=== PATIENT | male | born 1995 | race Caucasian/White ===

== ENCOUNTER 2019-02-02 15:54 | Emergency (ER) | payer OTHER ==
[~2019-02-02] VITALS: Ht 177.8 cm; Wt 81.6 kg
--- OUTSIDE RECORDS SUMMARY | 2019-02-02 16:01 | XMS REPORT | Continuity of Care Document ---
Author Organization Unknown Address Unknown Phone Unavailable Allergies There is no data. Medications There is no data. Problems There is no data. Procedures There is no data. Results There is no data. Encounters ACCT No. Visit Date/Time Discharge Status Pt. Type Provider Facility Loc./Unit Complaint [id number] 11/24/2018 15:40:00 11/24/2018 23:59:59 CLS Outpatient HANS ZARAGOZA DO [facility]
--- NOTE | 2019-02-02 16:11 | ED Upper Extremity ---
General Chief Complaint: Upper Extremity Stated Complaint: FINGER INJ AT WORK Source: patient Exam Limitations: no limitations History of Present Illness Date Seen by Provider: Feb 02, 2019 Time Seen by Provider: 15:55 Initial Comments The patient is a very pleasant 23-year-old male presents for evaluation of a left fifth digit injury. He states that he was at work when his finger was crushed in machine. He has a laceration to the tip of his left fifth finger d istal to the DIP joint. He has no pain or difficulty when flexing or extending the digit. He reports that he has had a tetanus immunization in the last 5 years. He has no other complaints and specifically denies any hand or wrist injury or pain outside of the obvious laceration. He is alert and oriented 4, calm, and appears to be in no distress. Onset: just prior to arrival Severity: moderate Pain/Injury Location: left 5th finger Method of Injury: direct blow (crush injury from heavy machinery) Allergies and Home Medications Allergies Coded Allergies: Sulfa (Sulfonamide Antibiotics) (Verified Allergy, Unknown, Rash, 02/02/19) Patient Home Medication List Home Medication List Reviewed: Yes Review of Systems Constitutional: no symptoms reported EENTM: no symptoms reported Respiratory: no symptoms reported Cardiovascular: no symptoms reported Gastrointestinal: no symptoms reported Genitourinary: no symptoms reported Musculoskeletal: no symptoms reported Skin: other (crush injury/laceration to the left fifth finger) Psychiatric/Neurological: See HPI All Other Systems Reviewed Negative Unless Noted: Yes Past Diqlwlc-Pgzquj-Xiyjzx Hx Past Med/Social Hx: Reviewed Nursing Past Med/Soc Hx Physical Exam Vital Signs Vital Signs - First Documented 02/02/19 15:58 Temp 98.5 Pulse 71 Resp 18 B/P (MAP) 142/80 (100) O2 Delivery Room Air Capillary Refill : Height, Weight, BMI Height: '" Weight: lbs. oz. 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, alert, normal mood/affect, oriented x 3 Lymphatic: no adenopathy Procedures/Interventions Wound Location: Upper Extremities (left 5th finger) Wound Length (cm): 2 Wound's Depth, Shape: irregular (with some tissue missing) Irrigated w/ Saline (ccs): 1000 Anesthesia: 1% Lidocaine Volume Anesthetic (ccs): 5 Suture: Ethlion Suture Size: 5-0 Number of Sutures: 5 Layer Closure?: 1 Sterile Dressing Applied?: Yes Progress Digital block performed with 1% lidocaine without epinephrine, laceration irregular with some tissue missing, 5 5-0 nylon sutures placed Progress/Results/Core Measures Results/Orders My Orders Orders - JOSSUE COLLAZO DO Finger(S) (02/02/19 16:01) Lidocaine 1% Inj 20 Ml (Xylocaine 1% Inj (02/02/19 16:15) Medications Given in ED Current Medications Medications Dose Ordered Sig/Oliver Route Start Time Stop Time Status Last Admin Dose Admin Lidocaine HCl 5 ml ONCE ONCE INJ 02/02/19 16:15 02/02/19 16:16 DC 02/02/19 16:27 5 ML Vital Signs/I&O 02/02/19 15:58 Temp 98.5 Pulse 71 Resp 18 B/P (MAP) 142/80 (100) O2 Delivery Room Air Diagnostic Imaging Diagonstic Imaging: Xray Comments [facility], [place] NAME: APARNA HURLEY [facility] REC#: [id number] PT STATUS: REG ER : 1995 PHYSICIAN: JOSSUE COLLAZO DO ADMIT DATE: 02/02/19/ER FS Draft Date of Exam:02/02/19 FINGER(S) CLINICAL INDICATION: Patient with crushing injury to left fifth digit. EXAM: X-ray of the left fifth finger, three views. COMPARISON: None. FINDINGS AND IMPRESSION: 1: There is a nondisplaced, oblique fracture involving the distal tuft of the fifth distal phalanx. There is soft tissue irregularity/injury seen adjacent to the fifth distal phalanx. 2: There is no radiodense foreign object. 3: The remainder of this exam is unremarkable. Dictated on workstation # [id number] Dict: 02/02/19 1612 Trans: 02/02/19 1618 [id number] Interpreted by: NORMA OZUNA MD Electronically signed by: Departure Impression Primary Impression: Laceration of finger of left hand Additional Impression: Fracture of finger of left hand Disposition: 01 HOME, SELF-CARE Condition: Stable Departure-Patient Inst. Decision time for Depature: 17:00 Referrals: NO,LOCAL PHYSICIAN (PCP/Family) Primary Care Physician Patient Instructions: Finger Fracture (DC), Laceration Repair With Stitches (DC) Add. Discharge Instructions: Follow-up with Dr. Garcia from orthopedics in the next 3-5 days. The sutures should be removed from her finger in 7-10 days from today. Keep the finger splint on to provide protection from additional injury and proper wound healing. Take Tylenol or ibuprofen at home for pain relief and he may also take the prescribed medication for pain relief as needed. Return to the emergency department immediately for new or worsening symptoms. Scripts Cephalexin (Keflex) 500 Mg Capsule 500 MG PO QID for 7 Days, #28 CAP Prov: JOSSUE COLLAZO DO 02/02/19 Hydrocodone/Acetaminophen (Johnston 5-325 Tablet) 1 Each Tablet 1 TAB PO Q4-6HR for Pain MDD 10 TABS for 7 Days, #12 TAB Prov: JOSSUE COLLAZO DO 02/02/19 Work/School Note: Work Release Form Date Seen in the Emergency Department: Feb 02, 2019 Return to Work: Feb 02, 2019 Restrictions: Need Release from Doctor JOSSUE COLLAZO DO Feb 02, 2019 16:11
[2019-02-02] MEDS ORDERED: LIDOCAINE 1% INJ 20 ML 20 ML VIAL INJ ONE (16:15)
--- NOTE | 2019-02-02 16:19 | Diagnostic Imaging Report ---
CLINICAL INDICATION: Patient with crushing injury to left fifth digit. EXAM: X-ray of the left fifth finger, three views. COMPARISON: None. FINDINGS AND IMPRESSION: 1: There is a nondisplaced, oblique fracture involving the distal tuft of the fifth distal phalanx. There is soft tissue irregularity/injury seen adjacent to the fifth distal phalanx. 2: There is no radiodense foreign object. 3: The remainder of this exam is unremarkable. Dictated by: Dictated on workstation # [id number]
[2019-02-02 17:04] VITALS: BP 142/80
[2019-02-02] MEDS ORDERED: CEPH-507 PO (17:05)
[2019-02-02] MEDS ORDERED: HYDR-4226 PO (17:05)
== END 2019-02-02 17:16 | disposition home or self-care (01) ==
LOC: ER FS 15:56
DX: S62.667A Nondisplaced fracture of distal phalanx of left little finger, initial encounter for closed fracture (principal); S61.217A Laceration without foreign body of left little finger without damage to nail, initial encounter; Z88.2 Allergy status to sulfonamides; W31.9XXA Contact with unspecified machinery, initial encounter; Y92.59 Other trade areas as the place of occurrence of the external cause; Y99.0 Civilian activity done for income or pay
CPT/HCPCS: 12041; 29130; 64450; 73140

== ENCOUNTER 2019-02-14 11:51 | Emergency (ER) | payer OTHER ==
[~2019-02-14] VITALS: Ht 177.8 cm; Wt 81.6 kg
[~2019-02-14 11:51] MED LIST: CEPH-507 PO; HYDR-4226 PO
--- NOTE | 2019-02-14 12:00 | ED Suture Removal/Wound Check ---
Suture/Wound Re-check Suture Removal/Wound Recheck : Suture Removal/Wound Recheck: Sutures removed by RN General Appearance: WD/WN, no apparent distress Neuro/Tendon: normal sensation, normal motor functions, normal tendon functions Skin Exam: normal color, warm/dry Comments Laceration to the volar aspect of the left little finger was well healed. Physical Exam Vital Signs Capillary Refill : General Appearance: no apparent distress Departure Impression Primary Impression: Visit for suture removal Disposition: HOME, SELF-CARE Condition: Unchanged Departure-Patient Inst. Decision time for Depature: 12:00 Referrals: [facility] [place] [place] [facility],LOCAL PHYSICIAN (PCP) Primary Care Physician Patient Instructions: SUTURE REMOVAL - UNCOMPLICATED, STAPLE REMOVAL - UNCOMPLICATED Add. Discharge Instructions: Return if any problems or questions. All discharge instructions reviewed with patient and/or family. Voiced understanding. DARYL RAMOS MD Feb 14, 2019 12:00
[2019-02-14 12:11] VITALS: BP 128/88
== END 2019-02-14 12:10 | disposition home or self-care (01) ==
LOC: EDUNIT# 11:51 → ER FS 11:53
DX: S61.217D Laceration without foreign body of left little finger without damage to nail, subsequent encounter (principal); X58.XXXD Exposure to other specified factors, subsequent encounter
CPT/HCPCS: 99282

== ENCOUNTER 2019-02-26 12:55 | Emergency (ER) | payer SELFPAY ==
[~2019-02-26] VITALS: Ht 177.8 cm; Wt 81.6 kg
[2019-02-26] MEDS ORDERED: TETRACAINE 0.5% OPHTH SOLN 4 ML BTL (SINGLE DOSE ONLY) OU ONE (13:15)
[2019-02-26] MEDS ORDERED: FLUORESCEIN (FLUOR-I-STRIPS) 1 MG STRP OU ONE (13:15)
[2019-02-26] MEDS ORDERED: BSS 15 ML IR ONE (13:15)
[2019-02-26] MEDS ORDERED: ERYT1OIN6 OP (14:05)
--- NOTE | 2019-02-26 14:05 | ED EENT ---
History of Present Illness General Chief Complaint: Eye Problems Stated Complaint: DOG SCRATCHED PTS RT EYE Source: patient Exam Limitations: no limitations History of Present Illness Date Seen by Provider: Feb 26, 2019 Time Seen by Provider: 13:10 Initial Comments This 23-year-old young man presents to the emergency room with burning irritation of the right eye and clouding of his vision after being positive by his dog. Timing/Duration: this morning Allergies and Home Medications Allergies Coded Allergies: Sulfa (Sulfonamide Antibiotics) (Verified Allergy, Unknown, Rash, 02/02/19) Home Medications Cephalexin 500 Mg Capsule, 500 MG PO QID Prescribed by: JOSSUE COLLAZO on 02/02/19 1705 Erythromycin Base 1 Gm Oint...g., 0 OP Q4H 1/2 inch Prescribed by: MOHSEN MURRELL on 02/26/19 1405 Hydrocodone/Acetaminophen 1 Each Tablet, 1 TAB PO Q4-6HR Prescribed by: JOSSUE COLLAZO on 02/02/19 1705 Patient Home Medication List Home Medication List Reviewed: Yes Review of Systems Review of Systems Constitutional: no symptoms reported Eyes: See HPI Ears: No Symptoms Reported Nose: no symptoms reported Mouth: no symptoms reported Throat: no symptoms reported Respiratory: no symptoms reported Cardiovascular: no symptoms reported Gastrointestinal: no symptoms reported Skin: no symptoms reported Neurological: No Symptoms Reported Hematologic/Lymphatic: No Symptoms Reported Past Elmvjxn-Ydnmej-Jojfdd Hx Past Med/Social Hx: Reviewed Nursing Past Med/Soc Hx Patient Social History Alcohol Use: Rarely Uses Recreational Drug Use: No Drug of Choice: MARIJUANA Smoking Status: Current Everyday Smoker Type Used: Cigarettes 2nd Hand Smoke Exposure: No Recent Hopitalizations: No Physical Abuse: No Sexual Abuse: No Mistreated: No Fear: No Immunizations Up To Date Tetanus Booster (TDap): Unknown PED Vaccines UTD: Yes Seasonal Allergies Seasonal Allergies: No Past Medical History Surgeries: No Respiratory: No Cardiac: No Neurological: No Genitourinary: No Gastrointestinal: No Musculoskeletal: No Endocrine: No HEENT: No Cancer: No Psychosocial: No Integumentary: No Blood Disorders: No Physical Exam Vital Signs Vital Signs - First Documented 02/26/19 13:07 Temp 97.2 Pulse 66 Resp 16 B/P (MAP) 131/78 (95) Pulse Ox 99 O2 Delivery Room Air Height, Weight, BMI Height: 5'10.00" Weight: 180lbs. oz. 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 A small abrasion was visible with the naked eye under close observation. Floor seen exam confirmed abrasion at the 4 o'clock position. Eye was irrigated with balanced saline. Progress/Results/Core Measures Results/Orders My Orders Medications Given in ED Departure Impression Primary Impression: Corneal abrasion Qualified Codes: S05.01XA - Injury of conjunctiva and corneal abrasion without foreign body, right eye, initial encounter Disposition: HOME, SELF-CARE Condition: Improved Departure-Patient Inst. Decision time for Depature: 14:03 Referrals: NO,LOCAL PHYSICIAN (PCP/Family) Primary Care Physician Patient Instructions: Corneal Abrasion (DC) Add. Discharge Instructions: Follow-up with an eye doctor on Thursday. You may take ibuprofen up to 600 mg every 6 hours as needed for pain. You may also add Tylenol (acetaminophen) up to 1000 mg every 6 hours as needed. Use erythromycin ointment as prescribed by applying a half inch ribbon to the back surface of your lower eyelid. Call or return to the emergency room if you are having problems or concerns prior to your follow-up. All discharge instructions reviewed with patient and/or family. Voiced understanding. Scripts Erythromycin Base (Erythromycin Opthalmic Ointment) 1 Gm Oint...g. 0 OP Q4H, #1 TUBE 1/2 inch Prov: MOHSEN CARLSON MD 02/26/19 MOHSEN CARLSON MD Feb 26, 2019 14:05
[2019-02-26 14:25] VITALS: BP 131/78
== END 2019-02-26 14:25 | disposition home or self-care (01) ==
LOC: EDUNIT# 12:55 → ER FS 12:56
DX: S05.01XA Injury of conjunctiva and corneal abrasion without foreign body, right eye, initial encounter (principal); F17.210 Nicotine dependence, cigarettes, uncomplicated; Z88.2 Allergy status to sulfonamides; W54.8XXA Other contact with dog, initial encounter
CPT/HCPCS: 99282

== ENCOUNTER 2020-07-29 02:05 | Emergency (ER) | payer OTHER ==
[~2020-07-29 02:05] MED LIST changes: +ERYT1OIN6 OP
--- NOTE | 2020-07-29 02:25 | ED Integumentary General ---
General Stated Complaint: MEDICAL CLEARANCE Source: patient, police History of Present Illness Date Seen by Provider: Jul 29, 2020 Time Seen by Provider: 02:19 Initial Comments 24 y/o male presents in police custody. Has laceration to upper forehead. No LOC. No other injury or complaints. Allergies and Home Medications Allergies Coded Allergies: Sulfa (Sulfonamide Antibiotics) (Verified Allergy, Unknown, Rash, 02/02/19) Home Medications Cephalexin 500 Mg Capsule, 500 MG PO QID Prescribed by: JOSSUE COLLAZO on 02/02/19 170 Erythromycin Base 1 Gm Oint...g., 0 OP Q4H 1/2 inch Prescribed by: MOHSEN MURRELL on 02/26/19 1405 Hydrocodone/Acetaminophen 1 Each Tablet, 1 TAB PO Q4-6HR Prescribed by: JOSSUE COLLAZO on 02/02/19 170 Patient Home Medication List Home Medication List Reviewed: Yes Review of Systems Review of Systems Constitutional: no symptoms reported EENTM: no symptoms reported Respiratory: No cough, No short of breath Cardiovascular: No chest pain, No palpitations, No syncope Gastrointestinal: No abdominal pain, No vomiting Musculoskeletal: No back pain, No joint pain Skin: No lesions, No lumps, No rash; other (cut to forehead) Psychiatric/Neurological: Denies Headache, Denies Numbness, Denies Paresthesia, Denies Seizure Past Phrvluz-Cyuwdm-Cadsyo Hx Past Med/Social Hx: Reviewed Nursing Past Med/Soc Hx Patient Social History Drug of Choice: MARIJUANA Type Used: Cigarettes 2nd Hand Smoke Exposure: No Recent Hopitalizations: No Immunizations Up To Date Tetanus Booster (TDap): Unknown PED Vaccines UTD: Yes Seasonal Allergies Seasonal Allergies: No Past Medical History Surgeries: No Respiratory: No Cardiac: No Neurological: No Genitourinary: No Gastrointestinal: No Musculoskeletal: No Endocrine: No HEENT: No Cancer: No Psychosocial: No Integumentary: No Blood Disorders: No Physical Exam Vital Signs Vital Signs - First Documented 07/29/20 02:14 Temp 36.0 Pulse 120 Resp 20 B/P (MAP) 139/93 (108) Pulse Ox 99 O2 Delivery Room Air Capillary Refill : General Appearance: WD/WN, no apparent distress HEENT: PERRL/EOMI, normal ENT inspection, other (horizontal superficial lac to upper mid forehead.) Neck: non-tender, supple, normal inspection Cardiovascular: normal peripheral pulses, regular rate, rhythm Respiratory: chest non-tender, lungs clear Gastrointestinal: non tender, soft Back: normal inspection, no CVA tenderness, no vertebral tenderness Neurologic/Psychiatric: no motor/sensory deficits, alert, other (belligerent and combative. Intoxicated and verbally abusive.) Procedures/Interventions Suture Size: 5-0 Progress/Results/Core Measures Results/Orders Vital Signs/I&O 07/29/20 07/29/20 02:14 02:37 Temp 36.0 36.0 Pulse 120 120 Resp 20 20 B/P (MAP) 139/93 (108) 139/93 (108) Pulse Ox 99 99 O2 Delivery Room Air Room Air Departure Impression Primary Impression: Laceration of forehead without complication Qualified Codes: S01.81XA - Laceration without foreign body of other part of head, initial encounter Additional Impression: Intoxication Disposition: 21 DIS/[address]/LAW [employer]OR[employer] Condition: Stable Departure-Patient Inst. Decision time for Depature: 02:24 Referrals: NO,LOCAL PHYSICIAN (PCP/Family) Primary Care Physician Patient Instructions: Laceration Repair With Glue (DC) Add. Discharge Instructions: cleared for incarceration PRASHANTH WONG DO Jul 29, 2020 02:24
[2020-07-29 02:37] VITALS: BP 139/93
== END 2020-07-29 02:37 ==
LOC: EDUNIT# 02:05 → ER FS 02:10
DX: S01.81XA Laceration without foreign body of other part of head, initial encounter (principal); F10.129 Alcohol abuse with intoxication, unspecified; Z88.2 Allergy status to sulfonamides; X58.XXXA Exposure to other specified factors, initial encounter